=== PATIENT | female | born 1980 | race Caucasian/White ===

== ENCOUNTER 2018-01-11 13:53 | Emergency (ER) | payer OTHER, SELFPAY ==
[2018-01-11] MEDS ORDERED: DIPHENHYDRAMINE 25 MG TAB/CAP ONE (14:56)
[2018-01-11] MEDS ORDERED: METOCLOPRAMIDE 10 MG/2mL INJ ONE ×2 (14:56→15:12)
[2018-01-11] MEDS ORDERED: NA CHLORIDE 0.9% 1,000 ML ONE (14:57)
[2018-01-11] MEDS ORDERED: NA CHLORIDE 0.9% 100 ML IV ONE (15:12)
--- NOTE | 2018-01-11 15:55 | RAD REPORT ---
EXAM DESCRIPTION: CT - Head Brain Wo Cont - 01/11/2018 3:27 pm CLINICAL HISTORY: Persistent headache for 3 days COMPARISON: January 2015 TECHNIQUE: Axial 5 mm thick images of the head were obtained without IV contrast. All CT scans are performed using dose optimization technique as appropriate and may include automated exposure control or mA/KV adjustment according to patient size. FINDINGS: No intracranial hemorrhage, mass, edema or shift of mid-line structures. No acute infarcti on changes seen. No abnormal extra-axial fluid collections. Ventricles are normal. Intracranial findi ngs are stable from comparison. Mastoid air cells and visualized portions of the paranasal sinuses are clear. No acute bony findings. IMPRESSION: Negative non-contrast CT head examination. No significant change from comparison.
--- NOTE | 2018-01-11 16:04 | EDPHYS ---
Physician Documentation [facility] Name: Vero Burt Age: 37 yrs Sex: Female : 1980 Arrival Date: 01/11/2018 Time: 13:54 Bed 13 Private MD: None, None ED Physician Delonte Bishop HPI: 01/11 14:38 This 37 yrs old Female presents to ER via Ambulatory with complaints of High jmm Blood Pressure. 14:38 The patient has elevated blood pressure and discovered this at a drugstore. Onset: The jmm symptoms/episode began/occurred gradually, 3 day(s) ago. Associated signs and symptoms: Pertinent positives: headache, visual changes. This is a 37 year old female with a history of hypothyroidism that presents to the ED with an occipital region headache beginning gradually 3 days ago. Patient states taking her blood pressure which read 213 systolic. The patient states she took 5 mg of lisinopril at 11 am. Patient states having continued headache. Denies weakness, chest pain or shortness of breath. 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 - Social history:: Smoking status: Patient uses tobacco products, denies chronic smoking, but will smoke occasionally. - Ebola Screening: : Patient denies travel to an Ebola-affected area in the 21 days before illness onset. ROS: 14:38 Constitutional: Negative for fever, chills, and weight loss, Cardiovascular: Negative jmm for chest pain, palpitations, and edema, Respiratory: Negative for shortness of breath, cough, wheezing, and pleuritic chest pain. 14:38 Neuro: Positive for headache, Negative for weakness. 14:38 All other systems are negative. Exam: 14:38 Head/Face: atraumatic. Chest/axilla: Normal chest wall appearance and motion. jmm Cardiovascular: Regular rate and rhythm. No edema appreciated Respiratory: Normal respirations, no respiratory distress appreciated Abdomen/GI: Non distended, soft 14:38 Constitutional: The patient appears in no acute distress, alert, awake. 14:38 Neuro: Orientation: is normal, Mentation: is normal, Memory: is normal, Cerebellar function: normal finger to nose testing, Motor: is normal, Gait: is steady. 14:38 Psych: Behavior/mood is pleasant, anxious. Vital Signs: 14:10 BP 189 / 118; Pulse 97; Resp 18; Temp 97.8(TE); Pulse Ox 98% on R/A; Weight 104.33 kg aj1 (R); Height 5 ft. 5 in. (165.10 cm) (R); Pain 10/10; 15:10 BP 155 / 99; Pulse 88; Resp 19; Pulse Ox 99% on R/A; rb1 15:59 BP 156 / 102; Pulse 96; Resp 18; Pulse Ox 100% ; ms 16:40 BP 152 / 97; Pulse 83; Resp 17; Pulse Ox 97% on R/A; rb1 14:10 Body Mass Index 38.27 (104.33 kg, 165.10 cm) aj1 MDM: 14:23 Patient medically screened. [facility] 16:00 Data reviewed: vital signs, nurses notes, lab test result(s). Counseling: I had a [facility] detailed discussion with the patient and/or guardian regarding: the historical points, exam findings, and any diagnostic results supporting the discharge/admit diagnosis, the presence of at least one elevated blood pressure reading (>120/80) during this emergency department visit, the need for outpatient follow up, to return to the emergency department if symptoms worsen or persist or if there are any questions or concerns that arise at home. Response to treatment: the patient's symptoms have markedly improved after treatment. ED course: BP decreased in the ED. Patient states feeling much better after administration of reglan. Patient is advised to follow up with PCP for evaluation of elevated blood pressure. Given strict return precautions. Patient understood and agrees with the plan of care. . 01/11 14:25 Order name: CT Head Brain wo Cont; Complete Time: 15:57 [facility] 01/11 14:25 Order name: Saline Lock; Complete Time: 15:24 [facility] Administered Medications: 15:00 Drug: Reglan 10 mg Route: IVP; Site: right antecubital; rb1 15:20 Follow up: Response: No adverse reaction rb1 15:00 Drug: diphenhydrAMINE 25 mg Route: PO; rb1 15:30 Follow up: Response: No adverse reaction rb1 15:00 Drug: NS 0.9% 100 ml Route: IV; Rate: bolus; Site: right antecubital; rb1 15:20 Follow up: Response: No adverse reaction; IV Status: Completed infusion rb1 Disposition: 18:49 Co-signature as Attending Physician, Delonte Bishop MD. rn Disposition: 01/11/18 16:03 Discharged to Home. Impression: Elevated blood-pressure reading, without diagnosis of hypertension, Headache. - Condition is Stable. - Discharge Instructions: General Headache Without Cause, Hypertension. - Medication Reconciliation Form, Thank You Letter, Antibiotic Education, Prescription Opioid Use form. - Follow up: Private Physician; When: 2 - 3 days; Reason: Recheck today's complaints, Continuance of care, Re-evaluation by your physician. Signatures: Dispatcher [employer] Honey Summers RN RN aj1 Christiano Lozada PA PA jmm Nieto, Roman, MD MD rn Barber, Rebecca, RN RN rb1 Corrections: (The following items were deleted from the chart) 17:13 16:03 01/11/2018 16:03 Discharged to Home. Impression: Elevated blood-pressure reading, rb1 without diagnosis of hypertension; Headache. Condition is Stable. Forms are Medication Reconciliation Form, Thank You Letter, Antibiotic Education, Prescription Opioid Use. Follow up: Private Physician; When: 2 - 3 days; Reason: Recheck today's complaints, Continuance of care, Re-evaluation by your physician. marlee
--- NOTE | 2018-01-11 16:04 | ER ---
Nurse's Notes [facility] Name: Vero Burt Age: 37 yrs Sex: Female : 1980 Arrival Date: 01/11/2018 Time: 13:54 Bed 13 Private MD: None, None Diagnosis: Elevated blood-pressure reading, without diagnosis of hypertension;Headache Presentation: 01/11 14:08 Presenting complaint: Patient states: She has had a headache for 3 days. Today she aj1 checked her blood pressure and it was 213/118. She took a blood pressure pill from her friend but her blood pressure was still 198/136 before she left the house. Denies blurred vision. Transition of care: patient was not received from another setting of care. Onset of symptoms was January 11, 2018. Risk Assessment: Do you want to hurt yourself or someone else? Patient reports no desire to harm self or others. Initial Sepsis Screen: Does the patient meet any 2 criteria? No. Patient's initial sepsis screen is negative. Does the patient have a suspected source of infection? No. Patient's initial sepsis screen is negative. Care prior to arrival: None. 14:08 Method Of Arrival: Ambulatory aj1 14:08 Acuity: KYE 3 aj1 Triage Assessment: 14:10 General: Appears in no apparent distress. uncomfortable, Behavior is calm, cooperative, aj1 appropriate for age. Pain: Complains of pain in forehead and occipital area Pain currently is 8 out of 10 on a pain scale. Neuro: Level of Consciousness is awake, alert, obeys commands. Neuro: Reports headache Denies blurred vision. Cardiovascular: Patient's skin is warm and dry. Respiratory: Airway is patent Respiratory effort is even, unlabored, Respiratory pattern is regular, symmetrical. 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 - Social history:: Smoking status: Patient uses tobacco products, denies chronic smoking, but will smoke occasionally. - Ebola Screening: : Patient denies travel to an Ebola-affected area in the 21 days before illness onset. Screenin:20 Abuse screen: Denies threats or abuse. Nutritional screening: No deficits noted. rb1 Tuberculosis screening: No symptoms or risk factors identified. Fall Risk None identified. Assessment: 14:20 General: Appears uncomfortable, obese, Behavior is calm, cooperative, Denies fever. rb1 Pain: Complains of pain in head Pain currently is 10 out of 10 on a pain scale. Pain began x 3 days. Neuro: Level of Consciousness is awake, alert, obeys commands, Oriented to person, place, time, Appropriate for age. Neuro: Denies blurred vision. Cardiovascular: Capillary refill < 3 seconds is brisk in bilateral fingers. Respiratory: Airway is patent Respiratory effort is even, unlabored, Respiratory pattern is regular, symmetrical. GI: No signs and/or symptoms were reported involving the gastrointestinal system. : No signs and/or symptoms were reported regarding the genitourinary system. Derm: Skin is dry, Skin is normal, Skin temperature is warm. 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 Gait is. rb1 15:21 Reassessment: Patient appears in no apparent distress at this time. No changes from rb1 previously documented assessment. Pt. went to CT. 16:19 Reassessment: Patient appears in no apparent distress at this time. Patient and/or rb1 family updated on plan of care and expected duration. Pain level reassessed. Patient is alert, oriented x 3, equal unlabored respirations, skin warm/dry/pink. at bedside. Vital Signs: 14:10 BP 189 / 118; Pulse 97; Resp 18; Temp 97.8(TE); Pulse Ox 98% on R/A; Weight 104.33 kg aj1 (R); Height 5 ft. 5 in. (165.10 cm) (R); Pain 10/10; 15:10 BP 155 / 99; Pulse 88; Resp 19; Pulse Ox 99% on R/A; rb1 15:59 BP 156 / 102; Pulse 96; Resp 18; Pulse Ox 100% ; ms 16:40 BP 152 / 97; Pulse 83; Resp 17; Pulse Ox 97% on R/A; rb1 14:10 Body Mass Index 38.27 (104.33 kg, 165.10 cm) aj1 ED Course: 13:54 Patient arrived in ED. sb2 13:55 None, None is Private Physician. sb2 14:10 Triage completed. aj1 14:10 Arm band placed on Patient placed in an exam room. aj1 14:14 Christiano Lozada PA is PHCP. jmm 14:14 Delonte Bishop MD is Attending Physician. jmm 14:20 Patient has correct armband on for positive identification. Bed in low position. Call rb1 light in reach. Side rails up X 1. Pulse ox on. NIBP on. 14:42 Malena Esquivel, RN is Primary Nurse. rb1 15:00 Inserted saline lock: 22 gauge in right antecubital area, using aseptic technique. rb1 15:28 CT Head Brain wo Cont In Process Unspecified. EDMS 15:28 CT completed. Patient tolerated procedure well. Patient moved back from CT. bq 16:40 No provider procedures requiring assistance completed. IV discontinued, intact, rb1 bleeding controlled, No redness/swelling at site. Pressure dressing applied. Administered Medications: 15:00 Drug: Reglan 10 mg Route: IVP; Site: right antecubital; rb1 15:20 Follow up: Response: No adverse reaction rb1 15:00 Drug: diphenhydrAMINE 25 mg Route: PO; rb1 15:30 Follow up: Response: No adverse reaction rb1 15:00 Drug: NS 0.9% 100 ml Route: IV; Rate: bolus; Site: right antecubital; rb1 15:20 Follow up: Response: No adverse reaction; IV Status: Completed infusion rb1 Outcome: 16:03 Discharge ordered by MD. jmm 16:40 Discharged to home ambulatory, with family. rb1 16:40 Condition: stable 16:40 Discharge instructions given to patient, Instructed on discharge instructions, follow up and referral plans. Demonstrated understanding of instructions, follow-up care, Prescriptions given X none 16:40 Patient left the ED. rb1 Signatures: Dispatcher [employer] EDMS Honey Jordan, GABY RN aj1 Christiano Lozada PA PA jmm Quilty, Betty bq Solis, Maria ms Malena Esquivel, RN RN rb1 Jo Ann Beck sb2 Corrections: (The following items were deleted from the chart) 17:12 16:50 BP 152 / 97; Pulse 83bpm; Resp 17bpm; Pulse Ox 97% RA; rb1 rb1 17:14 17:13 Patient left the ED. rb1 rb1
[2018-01-11 17:28] VITALS: TEMP 97.8
[2018-01-11 17:32] VITALS: BP 152/97; O2SAT 97
== END 2018-01-11 17:13 | disposition home or self-care (01) ==
LOC: ER 13:53
DX: R03.0 Elevated blood-pressure reading, without diagnosis of hypertension (principal); E03.9 Hypothyroidism, unspecified; F17.200 Nicotine dependence, unspecified, uncomplicated; R51 Headache; E66.9 Obesity, unspecified; Z68.38 Body mass index [BMI] 38.0-38.9, adult
CPT/HCPCS: 70450; 96361; 96365; 96374; 96375; 99284; J2765; J7030